=== PATIENT | female | born 1985 | race Caucasian/White ===

== ENCOUNTER 2020-03-13 10:05 | Emergency (ER) | payer BC, OTHER ==
[2020-03-13 10:24] VITALS: BP 116/74; PULSE 70; TEMP 99.3; BMI 30.9
== END 2020-03-13 10:45 | disposition home or self-care (01) ==
LOC: FER 10:05
DX: R20.2 Paresthesia of skin (principal); M54.10 Radiculopathy, site unspecified
CPT/HCPCS: 99284-25